=== PATIENT | female | born 1955 | race African-American/Black ===

== ENCOUNTER 2018-12-07 09:38 | Inpatient (IN) ==
[2018-12-07] MEDS ORDERED: Zolpidem Tartrate 5 MG Tablet PO PRN (10:21)
[2018-12-07] MEDS ORDERED: HYDROmorphone PF Inj 1 MG/ML Ampul IV.PUSH PRN (10:21)
[2018-12-07] MEDS ORDERED: Post-op Orders (for Pharmacy) OTHER STA (10:21)
[2018-12-07] MEDS ORDERED: Bisacodyl 10 MG Supp RECTAL PRN (10:21)
[2018-12-07] MEDS ORDERED: Dexamethasone Inj 20 MG/5 ML Vial IV.PUSH ONE (10:28)
[2018-12-07] MEDS ORDERED: Chlorhexidine Gluconate 2% 1 Pack (2 Cloths) TOPICAL ONE (10:30)
[2018-12-07] MEDS ORDERED: Chlorhexidine 4% Topical 120 APPLIC/120 ML Bottle TOPICAL SCH (10:30)
[2018-12-07] MEDS ORDERED: Sodium Chlor 0.9% Inj 500 ML IV.CONT ONE (10:30)
[2018-12-07] MEDS ORDERED: Metoprolol Tartrate 25 MG Tablet PO ONE (10:30)
[2018-12-07] MEDS ORDERED: Dexamethasone PF Inj 10 MG/ML Vial ONE (10:44)
[2018-12-07] MEDS ORDERED: SODIUM CHLOR 0.9% IV.SIG SCH (11:00)
[2018-12-07] MEDS ORDERED: TRANEXAMIC ACID IV.SIG SCH (11:00)
[2018-12-07] MEDS ORDERED: Tranexamic Acid Inj 3,000 MG in Sodium Chlor 0.9% Inj 100 ML P-ARTICULR SCH (11:00)
[2018-12-07] MEDS ORDERED: ceFAZolin 2 GM Premix Inj 2 GM/50 ML PIGGYBACK IV.SIG SCH (11:00)
[2018-12-07] MEDS ORDERED: Vancomycin Inj 1,000 MG in Sodium Chlor 0.9% Inj 250 ML IV.SIG SCH (11:00)
[2018-12-07] MEDS ORDERED: Bupivacaine Liposomal PF 1.3% Inj 20 ML Vial ONE (11:19)
[2018-12-07] MEDS ORDERED: Sodium Chlor 0.9% Inj 73.07 ML, Ropivacaine 0.5% PF Inj 24.63 ML, Ketorolac Inj 30 MG, ... P-ARTICULR SCH ×5 (11:30)
[2018-12-07] MEDS ORDERED: fentaNYL Citrate Inj 100 MCG/2 ML Ampul ONE ×3 (12:03→15:41)
[2018-12-07] MEDS ORDERED: Lidocaine PF 1% Inj 5 ML Syringe OTHER ONE (13:12)
[2018-12-07] MEDS ORDERED: Glycopyrrolate Inj 1 MG/5 ML Syringe IV.PUSH ONE (13:12)
[2018-12-07] MEDS ORDERED: Neostigmine Inj 5 MG/5 ML Syringe IV.PUSH ONE (13:12)
--- NOTE | 2018-12-07 15:14 | P.OP ---
Procedure: PREOPERATIVE DIAGNOSIS: Left knee osteoarthritis. POSTOPERATIVE DIAGNOSIS: Left knee osteoarthritis. PROCEDURE PERFORMED: Left total knee arthroplasty. SURGEON: Dr. Navin Sommer M.D. BI LEAD: OMAIRA Mancilla. ANESTHESIA: General with adductor canal femoral nerve block ESTIMATED BLOOD LOSS: 100 mL. COMPLICATIONS: None. IMPLANTS USED: Justina triathlon size 3 press-fit femur [] Justina triathlon size 3 press-fit tibia baseplate [] Size 11 polyethylene insert [] Cemented size 32 patella [] Tourniquet time 35 minutes at 250 mmHg Justification: The patient presents to the undersigned at [facility] with chief complaints of severe left knee pain. The pain is severe progressive and interferes with activities of daily living. The patient has failed greater than 3 months of nonoperative conservative treatment to include nonsteroidal anti-inflammatory medications, analgesic medications, physical therapy, cortisone injection, home exercise program, activity modification, ambulatory assistive aids, and weight loss. X-rays of the left knee reveal severe end- stage osteoarthritis with joint space narrowing, subchondral sclerosis, subchondral cysts, osteophyte formation, deformity with subluxation. The patient was counseled as to the risks, benefits, alternatives to a total knee arthroplasty. The risks were discussed which include but are not limited to, anesthesia, bleeding, infection, damage to nerves and blood vessels, continued pain, stiffness, failure of implants, blood clots, pulmonary embolism, and even . The patient's pain is severe and favors benefits over risk. The patient does wish to proceed with surgery as outlined above. Procedure in detail: Written consent has been obtained from the patient. The patient was identified and taken to the operating room. The patient was placed supine on the operating room table. General anesthesia was administered to the patient as well as an adductor canal femoral nerve block. The patient was administered preoperative IV antibiotic. A well-padded tourniquet was placed in the left thigh. The left lower extremity was prepped and draped using isopropyl alcohol , Hibiclens solution, and ChloraPrep solution. After a timeout was performed an Esmarch bandage was used to exsanguinate the left lower extremity. The tourniquet was inflated to 250 mmHg. A longitudinal incision was made over the anterior aspect of the left knee. A medial parapatellar arthrotomy was performed. The patella was everted. A patellar resection guide was used to assist with patellar resection. The patella drill guide was then placed to allow for 3 drill holes within the patella. The patella trial fit well. Attention was then turned to the femur where a intramedullary guide octavio was placed. The distal femoral guide was set to remove 10 mm of distal femur 5 degrees off the anatomic valgus axis alignment. An oscillating saw was used to perform the distal femoral cut. Attention was then turned to the tibia where extramedullary tibia guide was set to remove 4 mm off the lowest portion of the medial tibial plateau. The tibial guide was pinned in place and the tibial cut was performed. A 9mm spacer block showed full extension. Attention was turned back to the femur with the AP sizing block used to assist with appropriate measurement and placement of the 3 degree external rotation AP cutting guide. The anterior, posterior and chamfer cuts were then performed. The medial and lateral meniscus remnants were removed as well as bone and soft tissue debris from the posterior portion of the knee. A tibia baseplate was then pinned in place and the tibia was punched. Trial components were evaluated and final components were placed. With the final components implanted the knee could achieve full extension to 0 degrees and flexion to 140, with no evidence of tibial liftoff. The testing of varus valgus balance appeared appropriate and symmetric with good stability. The patella was noted to track centrally. The tourniquet was deflated Bovie cautery was then used for hemostasis. The knee was then thoroughly irrigated with sterile saline pulse lavage antibiotic impregnated solution. The arthrotomy incision was closed with #1 Vicryl suture. The subcutaneous layer closed with 2-0 Vicryl suture. The skin incision was then closed with Dermabond. Sterile dressings were applied. The patient tolerated the procedure well with no intraoperative complications noted. Navin Pappas physician wardrobe assistant certified was present during the entire procedure to include patient positioning and the procedure itself. The medical necessity of a physician wardrobe assistant was indicated in this case due to the complexity of the procedure itself. He assisted with appropriate manipulation of the leg and also retraction of the muscle, tendon, bone and neurovascular structures. He assisted with preparation of bone and also implantation of the prosthetic replacement. There was a plant technician within the room that was focused on handling of instruments but was not available to assist with the actual surgery itself. Surgeon: Navin Prince MD
[2018-12-07] MEDS ORDERED: Morphine Inj 4 MG/ML Vial ONE (15:41)
--- NOTE | 2018-12-07 16:03 | XR ---
EXAM DATE: 12/07/2018 3:56 PM EST AGE/SEX: 63 years / Female INDICATIONS: Post op knee replacement. CLINICAL DATA: This is the patient's initial encounter. Patient reports that signs and symptoms have been present for 1 day and indicates a pain score of Nonresponsive. MEDICAL/SURGICAL HISTORY: Non-responsive. Non-responsive. COMPARISON: No prior exams available for comparison. FINDINGS: Left knee prosthesis in place. There is good alignment and position of the prosthesis with the bony s tructures. The bony structures are grossly intact. CONCLUSION: Good position and alignment on this postoperative study. Electronically signed by: Evaristo Tapia MD Board Certified Radiologist 12/07/2018 4:02 PM EST
[2018-12-07] MEDS ORDERED: *morphine SULFATE 4 MG/ML PERIprocedure ONLY ONE ×3 (16:42→17:20)
[2018-12-07] MEDS ORDERED: *HYDROmorphone PF Inj 1 MG/ML Ampul PERIprocedural Use ONLY ONE (17:04)
[2018-12-07] MEDS: ceFAZolin 2 GM Premix Inj 2 GM/50 ML PIGGYBACK IV.SIG SCH (19:32)
[2018-12-07] MEDS: Labetalol 100 MG Tablet PO SCH (22:03)
[2018-12-07] MEDS: levETIRAcetam 500 MG Tablet PO SCH (22:03)
[2018-12-07] MEDS: Multivitamin/Minerals Therapeutic Tablet PO SCH (22:03)
[2018-12-07] MEDS: Senna/Docusate Sodium 8.6/50 MG Tablet PO SCH (22:03)
[2018-12-08] MEDS: ceFAZolin 2 GM Premix Inj 2 GM/50 ML PIGGYBACK IV.SIG SCH ×2 (01:44→09:14)
[2018-12-08 05:22] LABS: Hematocrit 32.7 % (35.0-46.0); Hemoglobin 10.9 gm/dL (11.6-15.3)
[2018-12-08] MEDS ORDERED: Levothyroxine 50 MCG Tablet PO SCH (06:00)
[2018-12-08] MEDS: levETIRAcetam 500 MG Tablet PO SCH (08:17)
[2018-12-08] MEDS: Multivitamin/Minerals Therapeutic Tablet PO SCH (08:17)
[2018-12-08] MEDS: Senna/Docusate Sodium 8.6/50 MG Tablet PO SCH (08:17)
[2018-12-08] MEDS: Labetalol 100 MG Tablet PO SCH (08:19)
--- NOTE | 2018-12-08 08:48 | P.PNOP ---
Subjective Interval history: pain controlled. Physical Exam Vital signs: Vital Signs 12/07/18 10:39 12/07/18 12:02 12/07/18 15:30 Temperature 98.9 F 97.4 F L Pulse Rate 87 64 80 Respiratory Rate 16 16 Blood Pressure 127/69 112/61 Pulse Oximetry 100 100 100 12/07/18 15:43 12/07/18 16:04 12/07/18 16:17 Temperature 98.0 F Pulse Rate 74 75 74 Respiratory Rate 18 18 20 Blood Pressure 104/68 123/81 126/97 H Pulse Oximetry 100 100 100 12/07/18 16:43 12/07/18 17:01 12/07/18 17:26 Temperature Pulse Rate 80 77 Respiratory Rate 20 18 18 Blood Pressure 142/88 H 141/87 H Pulse Oximetry 100 100 12/07/18 17:31 12/07/18 18:07 12/07/18 18:13 Temperature Pulse Rate 74 78 Respiratory Rate 18 20 Blood Pressure 129/75 129/74 Pulse Oximetry 100 98 91 L 12/07/18 19:26 12/07/18 20:40 12/08/18 00:25 Temperature 98.2 F 97.8 F 97.8 F Pulse Rate 80 70 83 Respiratory Rate 20 17 17 Blood Pressure 114/76 109/72 119/67 Pulse Oximetry 98 100 100 12/08/18 02:37 12/08/18 02:52 12/08/18 04:15 Temperature 98.7 F Pulse Rate 76 Respiratory Rate 16 18 17 Blood Pressure 128/63 Pulse Oximetry 100 12/08/18 04:58 Temperature Pulse Rate Respiratory Rate 17 Blood Pressure Pulse Oximetry Intake & Output 12/07/18 12/08/18 12/08/18 18:59 06:59 18:59 Intake Total 2132.68 / 2132.68 1580 / 1580 Output Total 100 / 100 Balance 2032.68 / 2032.68 1580 / 1580 Weight 84.5 kg 84.5 kg Intake: IV 1412.68 / 1412.68 1100 / 1100 LR 1000 mL Inj 1,000 ML @ 80 1000 / 1000 1000 / 1000 mls/hr IV.CONT .[id number] [facility] Rx# :[id number] Cyklokapron Inj 1,268 MG In NS 112.68 / 112.68 Inj 100 ML @ 200 mls/hr IV.SIG TAR MAN RASHEED Rx#:[id number] Vancomycin Inj 1,000 MG In NS 250 / 250 Inj 250 ML @ 250 mls/hr IV.SIG TAR MAN RASHEED Rx#:[id number] Ancef 2 GM Premix Inj 2 gm In 50 / 50 100 / 100 50 ml @ 100 mls/hr IV.SIG Q6H [facility] Rx#:[id number] Oral 320 / 320 480 / 480 Anesthesia Amount 400 / 400 Output: Estimated Blood Loss 100 / 100 Other: # Voids 1 Date of Last Bowel Movement 12/06/18 # Bowel Movements 0 Weight On Admission 84.5 kg Narrative: in bed, nad dressing c/d/i neg homans nvi Results - Labs CBC & Chem 7: 12/08/18 05:09 Laboratory Results - last 24 hr 12/07/18 12/08/18 10:40 05:09 Hgb 10.9 L Hct 32.7 L Blood Type O Positive Blood Type Recheck Required Antibody Screen Negative - Imaging Impressions Knee X-Ray 12/07/18 10:21 CONCLUSION: Good position and alignment on this postoperative study. Assessment and Plan - Ortho Post Op Day # 1 - Assessment and Plan s/p L TKA wbat maintain dressing asa 81 d/c planning home with pt - cleared today if does well in PT f/up dr. warner 2 weeks
[2018-12-08] MEDS ORDERED: hydroCHLOROthiazide 25 MG Tablet PO SCH (09:00)
[2018-12-08] MEDS ORDERED: amLODIPine 5 MG Tablet PO SCH (09:00)
[2018-12-08] MEDS ORDERED: Potassium Chloride 10 MEQ ER Capsule PO SCH (09:00)
--- NOTE | 2018-12-09 15:18 | MD ---
cc: Navin Prince MD DATE OF DISCHARGE: 12/08/2018 ADMITTING DIAGNOSIS: Severe degenerative osteoarthritis, left knee. DISCHARGE DIAGNOSIS: Severe degenerative osteoarthritis, left knee. HISTORY OF PRESENT ILLNESS: Ms. Tinoco is a 63-year-old female who [facility] for evaluation by Dr. Navdeep Prince regarding some progressive left knee pain. The patient states the pain is currently limiting her ability to ambulate safely and she feels she is a fall risk. She has severe aching sensation with weightbearing activities. She has no alleviating factors, although she has tried medications, assistive devices, physical therapy, home exercise program as well as corticosteroid injection without relief of symptoms. She does have x-ray evidence of severe degenerative osteoarthritis of the left knee. While in the office, the patient was counseled on her diagnosis and treatment options. Risks, benefits, and indications were discussed. The patient did elect to proceed with surgical intervention to include a left total knee arthroplasty. Date of surgery 12/07/2018, left total knee arthroplasty. POSTOPERATIVE: After surgery, the patient admitted to [facility] where she received appropriate medical management, pain control, DVT prophylaxis, as well as physical therapy. DISCHARGE: Once being discharged from the hospital, the patient has been cleared to go home where she will receive home physical therapy. She is in stable condition. She may weight bear as tolerated. She has been instructed on current management. She has been provided prescriptions for pain control as well as DVT prophylaxis. She has also been provided a followup appointment in approximately 2 weeks from date of surgery. The patient has asked appropriate questions which have been answered. The patient is discharged. Dictated by JIMBO Mancilla Navin Prince MD JWM/ld , 01:19 PM , 01:24 PM
== END 2018-12-08 17:56 | disposition home or self-care (01) | DRG 470 ==
LOC: HSDI 09:38 → N06 20:30
PROVIDERS: ADMIT Orthopaedic Surgery Sports Medicine; ATTEND Orthopaedic Surgery Sports Medicine
CPT/HCPCS: 73560; 85014; 85018; 86850; 86900; 86901; 94150; 97150; 97162; 97166; C1776; C9290; J0171; J0690; J0735; J1100; J1170; J1580; J1885; J2175; J2250; J2270; J2405; J2704; J2710; J2795; J3010; J3370; J7050; J7120; L1830